=== PATIENT | female | born 1980 | race Caucasian/White ===

== ENCOUNTER 2019-11-23 00:18 | Emergency (ER) | payer BC, OTHER, SELFPAY ==
--- NOTE | ~2019-11-23 | XR_ITS ---
EXAMINATION: XR wrist LT 2V INDICATION: Left wrist fracture, postreduction TECHNIQUE: Two views of the left wrist are obtained. COMPARISON: 0100 hours FINDINGS: There is an partial reduction and splinting of the previously described comminuted, intra-a rticular distal radius fracture. Approximately 2 mm of dorsal displacement of largest distal fracture fragment persists. Dorsal tilt of the distal articular surface has been reduced from 33 degrees to 1 0 degrees. An ulnar styloid avulsion is again noted. IMPRESSION: 1. Improved alignment and splinting of the previously described comminuted distal radius fracture. 2. Ulnar styloid avulsion. Reviewed, dictated and finalized at location A. IMPRESSION: 1. Improved alignment and splinting of the previously described comminuted dist al radius fracture. 2. Ulnar styloid avulsion.
--- NOTE | ~2019-11-23 | XR_ITS ---
EXAMINATION: XR wrist LT min 3V DATE: 11/23/2019 00:59 INDICATION: Left wrist injury. TECHNIQUE: 4 views of left wrist were obtained. COMPARISON: None. FINDINGS: There is a comminuted fracture of distal radius with involvement of the distal articular jordan rface. The main distal fracture fragment demonstrates 5 mm dorsal displacement, impaction, and dorsal angulation. There is 33 degrees dorsal tilt of the distal articular surface. There is an avulsion fr acture of the ulnar styloid. Joint spaces are normal. IMPRESSION: 1. Comminuted fractures of the distal radius. 2. Avulsion fracture of the ulnar styloid. Reviewed, dictated and finalized at location A.
[2019-11-23 00:22] VITALS: BP 116/53; PULSE 73; RESP 16; TEMP 36.9; O2SAT 98
--- NOTE | 2019-11-23 00:24 | ED.GENADULT ---
HPI - General Adult General Chief complaint: Extremity Injury, Upper Stated complaint: fell down stairs Time Seen by Provider: 11/23/19 00:24 Source: patient and family Mode of arrival: ambulatory Limitations: no limitations History of Present Illness HPI narrative: Patient is a 39-year-old female who presents for evaluation of left wrist pain following a fall. Patient reportedly tripped down a flight of steps, fell down the 7 steps and landed on his left outstretched arm. Patient reports she is right-hand dominant. She denies head injury or loss of consciousness. She has been ambulatory and is reporting moderate, aching left wrist pain. She denies headache, vision changes, nausea or vomiting. No neck pain, shoulder pain or lower back pain. No numbness or weakness in her lower extremities. Related Data Allergies Allergy/AdvReac Type Severity Reaction Status Date / Time No Known Allergies Allergy Verified 11/23/19 00:25 Review of Systems Review of Systems: Narrative: CONSTITUTIONAL: Denies fever, chills, or sweats. EYES: Denies visual changes CARDIOVASCULAR: Denies chest pain RESPIRATORY: Denies cough or dyspnea. GASTROINTESTINAL: Denies abdominal pain, nausea, vomiting SKIN: Reports bruising to left wrist MUSCULOSKELETAL: Bruising, swelling, pain at left wrist NEUROLOGIC: Denies headache, numbness, or weakness. [facility] Past Medical History Medical History (Updated 11/23/19 @ 01:54 by Mirela Sanders MD) Eczema Surgical History Surgical History (Updated 11/23/19 @ 00:34 by Mirela Sanders MD) H/O section Social History Social History (Updated 11/23/19 @ 00:34 by Mirela Sanders MD) Smoking status: Never smoker Alcohol intake: never Substance use: never Living arrangements: with family Gender identity (if verbalized by the patient): Female Exam Narrative: Exam Narrative: GENERAL: Awake, alert, conversant HEAD: Normocephalic, atraumatic. EYES: PERRLA and EOMI. ENT: Nares clear, no rhinorrhea or epistaxis. Mucous membranes moist. NECK: Supple. No cervical midline tenderness. No step-offs or deformities. CHEST: No respiratory distress, breathing even and non labored, chest wall stable without crepitus or pain HEART: Regular rate, sinus rhythm ABDOMEN:Non distended, non tender EXTREMITIES: Ecchymoses, edema, deformity, pain to left wrist. Radial pulse 2+. Intact sensation median, ulnar, radial nerve distribution. Full flexion extension at the left elbow without limitation. SKIN: Warm, dry, no rash. NEURO:No focal deficits. Alert and oriented x3 Course Vital Signs Vital signs: Vital Signs Temperature 36.9 C 11/23/19 00:22 Pulse Rate 73 11/23/19 00:22 Respiratory Rate 16 11/23/19 00:22 Blood Pressure 116/53 L 11/23/19 00:22 Pulse Oximetry 98 11/23/19 00:22 Temperature 36.9 C 11/23/19 01:19 Pulse Rate 73 11/23/19 00:22 Respiratory Rate 16 11/23/19 00:22 Blood Pressure 116/53 L 11/23/19 00:22 Pulse Oximetry 98 11/23/19 00:22 Procedures Orthopedic Fracture Reduction Fracture #1: Fracture Reduction date: 11/23/19 Fracture Reduction time: 01:30 Time Out Performed: Yes Side: left Fracture Reduction Location: radius and ulna Analgesia: hematoma block Pre-Procedure Neuro Vascular Exam: normal Technique: direct manipulation and traction/counter-traction Post Reduction X-rays Demonstrate: acceptable reduction Post-reduction neuro exam: intact Post-reduction vascular exam: intact Splint Applied: Yes Patient Tolerated Procedure: well Orthopedic Splinting/Casting Injury #1: Splinting/Casting Date: 11/23/19 Splinting/Casting Time: 01:35 Side: left Upper Extremity Injury Location: wrist Upper Extremity Immobilizer: sugar tong splint Splint: customized in ED Pre-Procedure Neuro Vascular Exam: normal Post-Procedure Neur
[2019-11-23] MEDS: ONDANSETRON HCL ODT 4 MG TABLET PO (00:49)
[2019-11-23 01:19] VITALS: TEMP 36.9
--- NOTE | 2019-11-23 01:34 | PC.NURSE ---
MELANIE Sanders in room for reduction of arm.
[2019-11-23 02:01] VITALS: BP 127/61; PULSE 68; RESP 16; TEMP 36.1; O2SAT 100
== END 2019-11-23 02:03 | disposition home or self-care (01) ==
LOC: ANHED 01:06
PROVIDERS: Emergency Provider Emergency Medicine
DX: S52.502A Unspecified fracture of the lower end of left radius, initial encounter for closed fracture (principal); S52.612A Displaced fracture of left ulna styloid process, initial encounter for closed fracture; W10.9XXA Fall (on) (from) unspecified stairs and steps, initial encounter
CPT/HCPCS: 25605; 73100; 73110; 99285; A4565; A9270

== ENCOUNTER 2019-11-27 01:17 | Outpatient (CLI) | payer BC, OTHER, SELFPAY ==
[2019-11-27 19:18] LABS: SARS-CoV-2 RNA PCR Negative
== END 2019-11-27 01:18 | disposition home or self-care (01) ==
PROVIDERS: PCP Family Medicine; Visit Provider Orthopaedic Surgery
DX: Z01.812 Encounter for preprocedural laboratory examination (principal); Z20.828 Contact with and (suspected) exposure to other viral communicable diseases
CPT/HCPCS: 87635; C9803; U0003

== ENCOUNTER 2021-07-21 04:12 | Day surgery (SDC) | payer OTHER, SELFPAY ==
[2021-07-18 09:35] VITALS: BMI 23.1
--- NOTE | 2021-07-18 09:47 | PC.NURSE ---
Report to the Outpatient Waiting Room, entrance under the green pavilion located off [facility], at time 0630 on date 07/21/21. OR Time: 0830. - You and your visitor will be asked a series of questions to screen for COVID 19 for your protection. - A mask is required within the hospital. One visitor will be allowed to accompany the patient into the hospital. Patients visitor will be instructed to remain with patient at all times or leave the building. We will allow the visitor to come back to the postoperative area when patient is ready. Preoperative COVID Testing Requirements: No COVID Test needed if: (proof is required; if not received patient will have Rapid Test prior to entry) - Patient has received COVID Vaccine at least 14 days prior to procedure date or - Patient has positive COVID test result within last 90 days of surgery date. COVID Test needed if above criteria is not met Patients may have clear liquids (water, carbonated beverages, clear teas, apple juice) until 3 hours prior to surgery with a maximum of 20 ounces. - No food from midnight until time of surgery Take the following medications with a SIP of water the morning of surgery: NONE Medications to discontinue per physician: VITAMINS/SUPPLEMENTS Date to take last dose: 07/18/21 Please no make-up, nail lao, hairspray, perfume, deodorant, or body powder the day of surgery. No jewelry (including any body piercings) or valuables the day of surgery, leave them at home. Please take a shower or bath the night before, or the morning of, surgery with an antibacterial soap. Wear comfortable, loose fitting clothing. - Jewelry must be removed prior to entering the operating room. Rings and piercings that are not removed may be cut off. - The hospital will not accept responsibility for valuables. - Please leave all valuables, including medications, at home the day of surgery. If you are going home after surgery, a licensed lead driver must drive you home. - NO public transportation without another adult. - We recommend that an adult stay with you for 24 hours following discharge. - We also recommend that you do not drive, make important decision, drink alcoholic beverages, or take any drugs that were not prescribed by your health care provider for at least 24 hours after your discharge time. Follow any additional instructions given to you from your surgeon. Telephone instructions given to RASHAWN STEPHENS and asked if any additional questions and then verbalized understanding. Patient advised to call surgeon office or pre surgery nurse liaison [phone] if any additional questions.
--- NOTE | 2021-07-20 12:42 | WPDANESEPPF ---
Anes - Initial Pre Proc Eval Procedure: Operation Date: 07/21/21 08:30 Proposed Procedures p Lapidus Bunionectomy Left Foot, Chucky Phalangeal Osteotomy Left Hallux - Juarez Cordoba JR, MD Date/Time: 07/20/21 12:42 Surgeon: Juarez Cordoba JR, MD Pre Op Diagnosis: bunion left foot Patient Data Age: 40 Gender: F Height: 1.63 m Weight: 61.24 kg Allergies Allergy/AdvReac Type Severity Reaction Status Date / Time No Known Allergies Allergy Verified 07/18/21 09:33 Home Medications Medication Instructions Recorded Confirmed Type norgestimate-ethinyl estradiol 1 tablet PO DAILY 11/24/19 07/18/21 History 0.18 mg/0.215mg/0.25mg-35 mcg(28)tablet crisaborole 2 % topical ointment 1 applic TOPICAL BID #100 g 11/29/20 07/18/21 Rx desoximetasone 0.05 % topical cream 1 applic TOPICAL BID #100 g 11/29/20 07/18/21 Rx ascorbate calcium (vitamin C) 500 mg PO DAILY 07/18/21 07/18/21 History [Kathie-C] cetirizine [Zyrtec] 10 mg PO DAILY 07/18/21 07/18/21 History cholecalciferol (vitamin D3) 125 mcg PO DAILY 07/18/21 07/18/21 History [Vitamin D3] Patient hx anesthesia problems: none Family hx anesthesia problems: none Results Review: All pre-operative results and documents have been reviewed as part of the pre-operative evaluation. [facility] Past Medical History Medical History BMI 23.0-23.9, adult Eczema Surgical History Surgical History Closed fracture of left distal radius H/O section S/P ORIF (open reduction internal fixation) fracture comminuted intra-articular left distal radius fracture reduction Family History Family History Father , 71 yrs old Lung cancer Mother Age related osteoporosis Social History Social History Social History: Smoking status: Never smoker Second hand tobacco smoke exposure: No Alcohol intake: never Substance use: never Substance use type: does not use Living arrangements: with family Gender identity (if verbalized by the patient): Female Sexual Orientation (if Verbalized by the Patient): Straight or Heterosexual Spiritual care concerns: No Anes - Eval Final PreProcedure Day of Procedure 07/20/21 12:42 Patient weight: normal Heart: regular rate and rhythm Lungs: clear to auscultation and normal air movement Airway: Mallampati scale class II Neurological: alert and oriented Last oral intake: >/= 8 hours ASA classification: II Emergent: no Anesthetic plan: proceed Anesthesia type and monitoring: general LMA and standard monitoring Results Review: All pre-operative results and documents have been reviewed as part of the pre-operative evaluation. Informed Consent: The patient's anesthetic plan and its attendant risks and benefits were discussed with the patient/family/POA. Questions were solicited and answers provided to the satisfaction of the patient/family/POA.
[2021-07-21] VITALS (9 sets, daily range): BP systolic 104–111; BP diastolic 55–62; PULSE 60–70; RESP 9–16; TEMP 37.1–37.3; O2SAT 100; BMI 22.9
--- NOTE | ~2021-07-21 | XR_ITS ---
EXAMINATION: XR surgery orthopedic EXAM DATE: 07/21/2021 10:14 INDICATION: Left foot bunionectomy, hallux surgery. TECHNIQUE: Fluoroscopy used during XR surgery orthopedic performed by Dr. Juarez Cordoba JR MD. Radiologist was not present for the imaging or procedure. Total fluoroscopic time of 41 seconds. Th e DAP for this procedure was 4.0 cGycm2. A total of 4 images sent to PACS from the exam. There is n o prior study for comparison. FINDINGS: Frontal and lateral images of the left 1st metatarsal region demonstrated hallux valgus on initial image. Subsequently, 1st proximal phalangeal osteotomy and supporting stable, and insertion of fusion hardware at the metatarsophalangeal joint. Correlate with procedure note. IMPRESSION: Fluoroscopy used during left 1st digit bunionectomy, hallux valgus correction.. Reviewed, dictated and finalized at location B.
--- NOTE | 2021-07-21 07:16 | WPDHPUPDATE1 ---
History and Physical Update Update Date/Time: 07/21/21 07:16 History and Physical has been reviewed, including an updated exam of the patient. There are NO changes in the patient's condition. Risks, benefits, and alternatives have been discussed and questions answered. Patient agrees to proceed with procedure.
--- NOTE | 2021-07-21 07:22 | WPDANESPNB ---
Anes - Peripheral Nerve Block Date/Time: 07/21/21 07:22 I have discussed with the patient/family/POA the placement of a peripheral nerve block for post-operative pain management, including associated risks, benefits, complications, and side effects. Alternative methods of post-operative analgesia were detailed. Questions were solicited and answers provided to the satisfaction of the patient/family/POA. Time-Out: A pre-procedural Time-Out was completed immediately before starting the procedure and confirmed: Patient Identification, Site, Procedure, Patient Position and the Availability of Requisite Equipment. Clinical Indications: Acute post-operative pain management requested by the operative surgeon. Nerve Block Insertion Note Anes-nerve block: posterior fossa sciatic left and adductor canal left Patient position: supine (for adductor canal) and other (right lateral for popliteal) Skin prep: chlorhexidine Needle: 22 gauge, stimulating, insulated echogenic needle. Needle length: 80 mm Technique: nerve stimulation lost at (mA) (for popliteal lost at 0.2) and ultrasound Injectate: bupivacaine 0.5% with epi 5 mcg/ml (20 mL for popliteal, 10 mL for adductor canal (no epi)) Observations: tolerated well Complications: none Procedure start time:: 828 Procedure end time:: 833
[2021-07-21] MEDS: LACTATED RINGERS 1,000 ML 30 ML IV CONT ×2 (07:49→10:46)
[2021-07-21] MEDS: ceFAZolin 2 GM/D5W 50 ML 2 GM/50 ML BAG IVPB (08:37)
--- NOTE | 2021-07-21 10:31 | W.PM.PROC2 ---
Procedure Note - Detailed Date of Procedure 07/21/21 Pre-op Diagnosis Bunion deformity left foot Post-op Diagnosis Same Procedure Performed 1. Lapidus Bunionectomy left foot 2. Chucky phalangeal osteotomy left hallux Surgeon Juarez Cordoba JR, PRACHIM Anesthesia General and Regional Indications Painful left forefoot Description of Procedure Under mild sedation, the patient was brought to the operating room, placed on the operating table in the supine position. A pneumatic ankle tourniquet was placed about the patient's ankle. Following general anesthesia and a previous popliteal fossa block, the foot was then scrubbed, prepped, and draped in the usual aseptic manner. An Esmarch bandage was then used to examine the patient's foot and pneumatic ankle tourniquet was then inflated. Surgery began in the following manner. Attention was directed to the dorsal aspect of the 1st metatarsocuneiform of the foot where fluoroscopy was used to identify the joint. A 3 cm incision was made overlying the dorsal aspect of the 1st metatarsocuneiform joint of the foot just medial to the extensor hallucis longus tendon. The incision was then continued deep down through the subcutaneous tissues using sharp and blunt dissection. All bleeders were ligated and cauterized as necessary. At this point, the extensor tendon was identified and reflected laterally. Next, the periosteum and capsular incision was made at the full length of the skin incision exposing the medial cuneiform as well as the base of the 1st metatarsal. Next, a sagittal bone saw was introduced from dorsal to plantar across the 1st metatarsocuneiform joint in order to free up any ankylosed portions of the joint and also to release any adhesions. Two Steinmann Pins were driven from dorsal to plantar 1cm proximal and distal to the 1st metatarsal cuneiform joint. The provided curved osteotome and curette was used to resect the cartilage and subchondral bone and a 2.0mm drill bit was used to fenestrate the joint to promote fusion. At this point, a small 2 cm incision was made along the lateral aspect of the 1st metatarsophalangeal joint of the left foot and a lateral release consisting of a lateral capsule incision as well as release of the adductor hallucis tendon with the tenotomy as well as releasing the distal aspect and lateral aspect and proximal aspect of the fibular sesamoid. After this, a lateral release was performed. The hallux was noted to be reduced as far as the track-bound hallux. A 3m incision was made medial to the first metatarsal head extending proximal to the proximal phalanx. A 1.4mm Steinmann pin was driven from medial to lateral across the 1st metatarsal head. Next the Lapifuse positioner was used to obtain 3 plane correction of the hallux abductovalgus deformity. Fluoroscopy was used to make sure that the 1st MPJ was congruous and the sesamoid apparatus was centered under the first metatarsal. Next a 4mm cannulated screw was driven from the medial base of the 1st metatarsal to the central and lateral cuneiform bone. Excellent compression was noted, next a Lapifuse plate was placed dorsal medially along the 1st metatarsal cuneiform joint and 4 locking and one eccentrically drilled non locking screws was used to further compress the joint to ensure arthrodesis. At this point the positioner was removed and fluoroscopy was used to make sure that deformity correction was maintained. The patient still had slight hallux abductus so I made a closing medial base wedge resection from the distal metaphysial diaphyseal junction of the proximal phalanx and compressed the osteotomy with a Badoo 8mm nitinol compression staple. After the Chucky osteotomy the hallux was noted to be in a rectus position. The periosteum and capsular structures were reapproximated and coapted utilizing horizontal mattress as well as simple interrupted suture fashion technique along the 1st meta
--- NOTE | 2021-07-21 11:19 | SUR.PHASEI ---
1115 - left foot without sensation. skin warm to touch, toes elijah quickly.
== END 2021-07-21 13:07 | disposition home or self-care (01) ==
PROVIDERS: PCP Family Medicine; Visit Provider Podiatrist Foot & Ankle Surgery
PROC: (CPT 28299; principal; 2021-07-21 08:30)
DX: M21.612 Bunion of left foot (principal); G89.18 Other acute postprocedural pain; L30.9 Dermatitis, unspecified
CPT/HCPCS: 28298; 64445; 64447; C1713; J0690; J1100; J2250; J2370; J2405; J2704; J3010; J7120

== ENCOUNTER 2021-11-20 07:37 | Outpatient (CLI) | payer OTHER, SELFPAY ==
--- NOTE | ~2021-11-20 | MM_ITS ---
EXAMINATION: MM diagnostic leah BI w rufino HISTORY: Left breast lump palpated by nurse practitioner; patient does not know the location. TECHNIQUE: Spot and full field 3-D tomosynthesis images of both breasts were performed and synthetic 2-D images were generated. CAD analysis was submitted and interpreted. COMPARISON: None BREAST PARENCHYMAL COMPOSITION: The breasts are heterogeneously dense, which may obscure small masses . FINDINGS: Possible 10 mm circumscribed mass the inner mid left breast (craniocaudal Tomosynthesis image 23/37); spot CC Tomosynthesis image 20/44. Circumscribed 11 mm mass is noted in the central right breast approximately 3 cm-4 cm deep to the nip ple.. Additional masses may be obscured by the heterogeneous dense stroma. Bilateral complete breast ultras ound examination is recommended. IMPRESSION: 1. Bilateral breast masses are suggested; heterogeneously dense stroma may obscure additional masses. 2. Bilateral complete breast ultrasound examination is recommended BI-RADS Category 0: Incomplete: Needs additional imaging evaluation. Reviewed, dictated and finalized at location A. IMPRESSION: 1. Bilateral breast masses are suggested; heterogeneously dense stroma may obsc ure additional masses. 2. Bilateral complete breast ultrasound examination is recommended BI-RADS Category 0: Incomplete: Needs additional imaging evaluation.
== END 2021-11-20 07:38 | disposition home or self-care (01) ==
PROVIDERS: PCP Family Medicine; Visit Provider Nurse Practitioner
DX: N63.20 Unspecified lump in the left breast, unspecified quadrant (principal); R92.8 Other abnormal and inconclusive findings on diagnostic imaging of breast
CPT/HCPCS: 77062; 77066; G0279

== ENCOUNTER 2021-11-22 14:40 | Outpatient (CLI) | payer OTHER, SELFPAY ==
--- NOTE | ~2021-11-22 | US_ITS ---
US breast BI limited DATE: 11/22/2021 15:23 INDICATION: Bilateral breast masses suggested on 11/20/2021 bilateral diagnostic mammography. Clinical history of left breast lump palpated by nurse practitioner, location not identified TECHNIQUE: Real-time and color flow imaging of both complete breasts including all 4 quadrants and jordan bareolar areas COMPARISON: 11/20/2021 bilateral diagnostic mammography FINDINGS: . Right breast: 6:00 subareolar: Approximately 9 x 7 x 12 mm parallel circumscribed heterogeneous hypoechoic solid le jacob without posterior shadowing or internal vascularity, likely a benign fibroadenoma 1:00 2 cm from nipple: 2.2 x 3 mm sonolucency with annular consistent with small cyst 2:00 9 cm from nipple: Parallel circumscribed hypoechoic solid lesion measuring 7.6 x 3.7 x 13.5 mm d imension, without internal vascularity or posterior shadowing, likely a benign fibroadenoma Left breast: 11:00 3 cm from nipple: Parallel circumscribed 7 x 12 x 13 mm hypoechoic solid lesion without interna l vascularity or posterior shadowing, likely a benign fibroadenoma. 3:00 5 cm from nipple: Parallel circumscribed approximately 12 x 4.6 x 7.9 mm mass with irregular out line and some angular margins. There is some adjacent vascularity. Ultrasound-guided biopsy is recomm ended. IMPRESSION: Left breast 3:00 lesion 5 cm from nipple with irregular outline, some angular margins, ad jacent vascularity. There is some through-transmission but because of some irregular angular margins, ultrasound-guided biopsy is recommended BI-RADS Category 4: Suspicious abnormality; biopsy should be considered Dr. Holbrook telephoned the report and ultrasound-guided biopsy recommendation of left breast 3:00 lesion on 11/22/2021 at 1336 hours to Gloria Kelly, Nurse Practitioner. Reviewed, dictated and finalized at Location A. Reviewed, dictated and finalized at location A. IMPRESSION: Left breast 3:00 lesion 5 cm from nipple with irregular outline, so me angular margins, adjacent vascularity. There is some through-transmission bu t because of some irregular angular margins, ultrasound-guided biopsy is recomm ended BI-RADS Category 4: Suspicious abnormality; biopsy should be considered Dr. Holbrook telephoned the report and ultrasound-guided biopsy recommendation of l eft breast 3:00 lesion on 11/22/2021 at 1336 hours to Gloria Kelly, Nurse Pract itioner.
== END 2021-11-22 14:41 | disposition home or self-care (01) ==
PROVIDERS: PCP Family Medicine; Visit Provider Nurse Practitioner
DX: N63.20 Unspecified lump in the left breast, unspecified quadrant (principal); R92.8 Other abnormal and inconclusive findings on diagnostic imaging of breast
CPT/HCPCS: 76642

== ENCOUNTER 2022-02-23 00:45 | Day surgery (SDC) | payer OTHER, SELFPAY ==
[2022-02-16 14:53] VITALS: BMI 22.5
--- NOTE | 2022-02-16 14:59 | PC.NURSE ---
Report to the Outpatient Waiting Room, entrance under the green pavilion located off [facility], at time 0600 on date 02/23/22. Planned Procedure Time: 0730. Time changes happen often and if your time is changed the preop area will call you the afternoon before. - You and your visitor will be asked to self-screen and do not enter if you have any COVID symptoms. - We encourage only one visitor and NO visitors under age 16 are allowed at this time. Your visitor will receive communication by the phone number that is given day of service. - The patient visitor is requested to social distance or may leave the building when not with patient due to restrictions. - A mask is OPTIONAL within the hospital. Patients may have clear liquids (water, carbonated beverages, clear teas, apple juice) until 3 hours prior to surgery with a maximum of 20 ounces. - No food from midnight until time of surgery Take the following medications with a SIP of water the morning of surgery: NONE Medications to discontinue per physician: VITAMINS/SUPPLEMENTS Date to take last dose: 1 WEEK PRIOR TO SURGERY (PER DR. NI PER PT) Please no make-up, nail [place] islander, hairspray, perfume, deodorant, or body powder the day of surgery. No jewelry (including any body piercings) or valuables the day of surgery, leave them at home. Please take a shower or bath the night before, or the morning of, surgery with an antibacterial soap. Wear comfortable, loose fitting clothing. - Jewelry must be removed prior to entering the operating room. Rings and piercings that are not removed may be cut off. - The hospital will not accept responsibility for valuables. - Please leave all valuables, including medications, at home the day of surgery. If you are going home after surgery, a licensed taxicab driver must drive you home. - NO public transportation without another adult. - We recommend that an adult stay with you for 24 hours following discharge. - We also recommend that you do not drive, make important decision, drink alcoholic beverages, or take any drugs that were not prescribed by your health care provider for at least 24 hours after your discharge time. Follow any additional instructions given to you from your surgeon. If you or anyone in your household have experienced Covid symptoms in the past week, please notify your surgeon or the nurse liaison at the phone number below for possible testing. Telephone instructions given to PT - RASHAWN STEPHENS and asked if any additional questions and then verbalized understanding. Patient advised to call surgeon office or pre surgery nurse liaison [phone] if any additional questions.
--- NOTE | 2022-02-22 15:48 | WPDANESEPPF ---
Anes - Initial Pre Proc Eval Procedure: Operation Date: 02/23/22 07:30 Proposed Procedures p Lapidus Bunionectomy Right Foot, Chucky Phalangeal Osteotomy Right Hallux - Juarez Cordoba JR, MD Date/Time: 02/22/22 15:48 Surgeon: Juarez Cordoba JR, MD Pre Op Diagnosis: Bunion Right Foot Patient Data Age: 41 Gender: F Height: 1.63 m Weight: 59.5 kg Allergies Allergy/AdvReac Type Severity Reaction Status Date / Time No Known Allergies Allergy Verified 02/23/22 06:37 Home Medications Medication Instructions Recorded Confirmed Type desoximetasone 0.05 % topical cream 1 applic topical BID #100 grams 11/29/20 02/16/22 Rx ascorbate calcium (vitamin C) 500 500 mg PO DAILY 07/18/21 02/23/22 History mg tablet cetirizine 10 mg tablet (Zyrtec) 10 mg PO DAILY 07/18/21 02/16/22 History cholecalciferol (vitamin D3) 125 125 mcg PO DAILY 07/18/21 02/23/22 History mcg (5,000 unit) tablet (Vitamin D3) drospirenone 3 mg-estetrol 14.2 mg See Rx Instructions PO .COMPLEX 12/05/21 02/23/22 History (28) tablet (Nextstellis) hydroxyzine HCl 25 mg tablet 25 mg PO BID PRN itching #30 tabs 12/05/21 02/16/22 Rx calcium carbonate 500 mg calcium 500 mg PO DAILY 02/16/22 02/23/22 History (1,250 mg) chewable tablet (Calcium 500) Patient hx anesthesia problems: none Family hx anesthesia problems: none Results Review: All pre-operative results and documents have been reviewed as part of the pre-operative evaluation. [facility] Past Medical History Medical History (Updated 02/22/22 @ 15:50 by Nick Murphy DO) Anxiety Bilateral bunions BMI 23.0-23.9, adult Eczema Seasonal allergies Surgical History Surgical History (Updated 12/05/21 @ 21:13 by Leidy Clement MD) Closed fracture of left distal radius H/O section S/P ORIF (open reduction internal fixation) fracture comminuted intra-articular left distal radius fracture reduction Family History Family History Father , 71 yrs old Lung cancer Mother Age related osteoporosis Social History Social History (Updated 12/05/21 @ 16:34 by Preeti Sousa) Social History: Smoking status: Never smoker Second hand tobacco smoke exposure: No Alcohol intake: never Substance use: never Substance use type: does not use Living arrangements: with family Gender identity (if verbalized by the patient): Female Sexual Orientation (if Verbalized by the Patient): Straight or Heterosexual Spiritual care concerns: No Anes - Eval Final PreProcedure Day of Procedure 02/22/22 15:48 Patient weight: overweight Heart: regular rate and rhythm Lungs: clear to auscultation Airway: Mallampati scale class II Neurological: alert and oriented Last oral intake: >/= 8 hours ASA classification: II Emergent: no Anesthetic plan: proceed Anesthesia type and monitoring: general LMA and standard monitoring Results Review: All pre-operative results and documents have been reviewed as part of the pre-operative evaluation. Informed Consent: The patient's anesthetic plan and its attendant risks and benefits were discussed with the patient/family/POA. Questions were solicited and answers provided to the satisfaction of the patient/family/POA.
[2022-02-23] VITALS (8 sets, daily range): BP systolic 101–111; BP diastolic 55–67; PULSE 66–86; RESP 12–17; TEMP 36.9–37.4; O2SAT 99–100; BMI 22.6
--- NOTE | ~2022-02-23 | XR_ITS ---
XR surgery orthopedic DATE: 02/23/2022 09:05 INDICATION: Bunionectomy TECHNIQUE: 3 spot C-arm images of the forefoot 3.9099 cGycm2 total DAP: 30 seconds fluoroscopy time COMPARISON: None FINDINGS: Status post osteotomy at the metaphyseal region of the proximal phalanx of the first digit with medial metaphyseal stable bridging the osteotomy site Plates and screws are noted along the dorsal aspect of the medial cuneiform and proximal half of the first metatarsal bone, with overlying screw extending from the proximal medial aspect of the first me tatarsal bone into the mid tarsal area. IMPRESSION: Postoperative changes Reviewed, dictated and finalized at Location A. Reviewed, dictated and finalized at location B. 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
--- NOTE | 2022-02-23 07:11 | WPDHPUPDATE1 ---
History and Physical Update Update Date/Time: 02/23/22 07:11 History and Physical has been reviewed, including an updated exam of the patient. There are NO changes in the patient's condition. Risks, benefits, and alternatives have been discussed and questions answered. Patient agrees to proceed with procedure.
[2022-02-23] MEDS: LACTATED RINGERS 1,000 ML 30 ML IV CONT (07:23)
[2022-02-23] MEDS: ceFAZolin 2 GM/D5W 50 ML 2 GM/50 ML BAG IVPB (07:39)
--- NOTE | 2022-02-23 07:51 | WPDANESPNB ---
Anes - Peripheral Nerve Block Date/Time: 02/23/22 07:51 I have discussed with the patient/family/POA the placement of a peripheral nerve block for post-operative pain management, including associated risks, benefits, complications, and side effects. Alternative methods of post-operative analgesia were detailed. Questions were solicited and answers provided to the satisfaction of the patient/family/POA. Time-Out: A pre-procedural Time-Out was completed immediately before starting the procedure and confirmed: Patient Identification, Site, Procedure, Patient Position and the Availability of Requisite Equipment. Clinical Indications: Acute post-operative pain management requested by the operative surgeon. Nerve Block Insertion Note Anes-nerve block: posterior fossa sciatic right and adductor canal right Patient position: supine (for adductor canal) and other (right lateral for popliteal) Skin prep: chlorhexidine Needle: 22 gauge, stimulating, insulated echogenic needle. Needle length: 80 mm Technique: nerve stimulation lost at (mA) (for popliteal lost at 0.2) and ultrasound Injectate: bupivacaine 0.5% with epi 5 mcg/ml (20 mL for popliteal, 10 mL for adductor canal (no epi)) Observations: tolerated well Complications: none Procedure start time:: 732 Procedure end time:: 737
--- NOTE | 2022-02-23 09:22 | W.PM.PROC2 ---
Procedure Note - Detailed Date of Procedure 02/23/22 Pre-op Diagnosis Bunion Right Foot Post-op Diagnosis Same Procedure Performed 1. Lapidus bunionectomy right foot 2. Chucky phalangeal osteotomy right hallux Surgeon Juarez Cordoba JR, HUGO Anesthesia General and Regional (Popliteal fossa block) Indications Painful right forefoot Description of Procedure Under mild sedation, the patient was brought to the operating room, placed on the operating table in the supine position. A pneumatic ankle tourniquet was placed about the patient's ankle. Following general anesthesia and a previous popliteal fossa block, the foot was then scrubbed, prepped, and draped in the usual aseptic manner. An Esmarch bandage was then used to examine the patient's foot and pneumatic ankle tourniquet was then inflated. Surgery began in the following manner. Attention was directed to the dorsal aspect of the 1st metatarsocuneiform of the foot where fluoroscopy was used to identify the joint. A 3 cm incision was made overlying the dorsal aspect of the 1st metatarsocuneiform joint of the foot just medial to the extensor hallucis longus tendon. The incision was then continued deep down through the subcutaneous tissues using sharp and blunt dissection. All bleeders were ligated and cauterized as necessary. At this point, the extensor tendon was identified and reflected laterally. Next, the periosteum and capsular incision was made at the full length of the skin incision exposing the medial cuneiform as well as the base of the 1st metatarsal. Next, a sagittal bone saw was introduced from dorsal to plantar across the 1st metatarsocuneiform joint in order to free up any ankylosed portions of the joint and also to release any adhesions. Two Steinmann Pins were driven from dorsal to plantar 1cm proximal and distal to the 1st metatarsal cuneiform joint. The provided curved osteotome and curette was used to resect the cartilage and subchondral bone and a 2.0mm drill bit was used to fenestrate the joint to promote fusion. At this point, a small 2 cm incision was made along the lateral aspect of the 1st metatarsophalangeal joint of the right foot and a lateral release consisting of a lateral capsule incision as well as release of the adductor hallucis tendon with the tenotomy as well as releasing the distal aspect and lateral aspect and proximal aspect of the fibular sesamoid. After this, a lateral release was performed. The hallux was noted to be slightly reduced as far as the track-bound hallux. A 3m incision was made medial to the first metatarsal head extending proximal to the proximal phalanx. A 1.4mm Steinmann pin was driven from medial to lateral across the 1st metatarsal head. Next the Lapifuse positioner was used to obtain 3 plane correction of the hallux abductovalgus deformity. Fluoroscopy was used to make sure that the 1st MPJ was congruous and the sesamoid apparatus was centered under the first metatarsal. Next a 4mm cannulated screw was driven from the medial base of the 1st metatarsal to the central and lateral cuneiform bone. Excellent compression was noted, next a Lapifuse plate was placed dorsal medially along the 1st metatarsal cuneiform joint and 4 locking screws were used to further compress the joint to ensure arthrodesis. At this point the positioner was removed and fluoroscopy was used to make sure that deformity correction was maintained. The patient still had slight hallux abductus so I made a closing medial base wedge resection from the base of the proximal phalanx and compressed the osteotomy with a SyntheliserCono-C 8mm nitinol compression staple. After the Chucky osteotomy the hallux was noted to be in a rectus position. The periosteum and capsular structures were reapproximated and coapted utilizing horizontal mattress as well as simple interrupted suture fashion technique along the 1st metatarsophalangeal joint and then 3-0 PDS was then used to
[2022-02-23] MEDS: ONDANSETRON HCL ODT 4 MG TABLET PO (11:38)
== END 2022-02-23 11:48 | disposition home or self-care (01) ==
PROVIDERS: PCP Family Medicine; Visit Provider Podiatrist Foot & Ankle Surgery
PROC: (CPT 28299; principal; 2022-02-23 07:30)
DX: M21.611 Bunion of right foot (principal); G89.18 Other acute postprocedural pain; L30.9 Dermatitis, unspecified
CPT/HCPCS: 28298; 64447; 64445; 99199; A9270; C1713; J0690; J1100; J1170; J2250; J2405; J2704; J3010; J7120

== ENCOUNTER 2022-06-07 08:51 | Outpatient (CLI) | payer OTHER, SELFPAY ==
--- NOTE | ~2022-06-07 | XR_ITS ---
Clinical Indication: Chest pain PA and lateral views of the chest: Comparison: None Findings: The lungs are clear, without evidence of focal consolidation or pleural effusion. Cardiome diastinal silhouette is within normal limits. Bones and soft tissues are unremarkable. Impression: Normal chest. Reviewed, dictated and finalized at location . [employer] Impression: Normal chest.
== END 2022-06-07 08:52 | disposition home or self-care (01) ==
PROVIDERS: PCP Family Medicine; Visit Provider Family Medicine
DX: R07.89 Other chest pain (principal)
CPT/HCPCS: 71046

== ENCOUNTER 2022-08-17 15:24 | Outpatient (CLI) | payer OTHER, SELFPAY ==
--- NOTE | ~2022-08-17 | XR_ITS ---
XR cervical spine 4-5V INDICATION: Anesthesia at the skin. Left arm numbing. TECHNIQUE: 4 views of the cervical spine. FINDINGS: No prior studies for comparison. The cervical spine is visualized to the cervicothoracic junction. There is no prevertebral soft tiss ue swelling, listhesis, or loss of vertebral body height. Intervertebral disc spaces are normal. Th e osseous central canal is patent. No displaced cervical spine fractures are identified. There is st raightening of cervical lordosis. There is mild uncinate degenerative change at C4-5 and C5-6. IMPRESSION: 1. Mild cervical spondylosis.. Reviewed, dictated and finalized at location B.
== END 2022-08-17 15:25 | disposition home or self-care (01) ==
PROVIDERS: PCP Family Medicine; Visit Provider Family Medicine
DX: M47.812 Spondylosis without myelopathy or radiculopathy, cervical region (principal); R20.0 Anesthesia of skin
CPT/HCPCS: 72050